=== PATIENT | male | born 1970 | race Caucasian/White ===

== ENCOUNTER → 2020-05-14 12:13 | Outpatient (CLI) | payer MEDICARE, SELFPAY ==
[2020-05-14 13:19] LABS: Hemoglobin A1C 9.3 % (4.0-6.0)
[2020-05-14 15:46] LABS: Alanine Aminotransferase 51 U/L (12-78); Albumin Level 4.4 g/dl (3.5-5.0); Albumin/Globulin Ratio 1.6 (1.1-1.8); Alkaline Phosphatase 90 U/L (38-126); Aspartate Amino Transferase 56 U/L (17-59); Bilirubin,Total 0.7 mg/dl (0.2-1.3); Calcium 10.2 mg/dl (8.4-10.2); Carbon Dioxide 27 mmol/L (22.0-30.0); Chloride 103 mmol/L (98-107); Chol/HDL Ratio 4.1 (1-3.5); Cholesterol 206 mg/dl (140-200); Globulin 2.7 g/dL (1.3-3.2); Glucose 141 mg/dl (74-100); HDL Cholesterol 50 mg/dl (40-60); Sodium 140 mmol/L (136-145); Total Protein,Serum 7.1 g/dl (6.3-8.2); Triglycerides 330 mg/dl (30-150); VLDL Cholesterol 66 mg/dL (0-40)
[2020-05-14 15:48] LABS: Blood Urea Nitrogen 25 mg/dl (9-20); Estimated Glomerular Filt Rate 43 ml/min (>60); GFR (African American) 52 ML/MIN (>60)
[2020-05-14 15:58] LABS: Direct LDL Cholesterol 98.25 mg/dL (100-129)
== END ==
PROVIDERS: PCP Internal Medicine Adolescent Medicine; Referring Provider Internal Medicine Adolescent Medicine; Visit Provider Internal Medicine Adolescent Medicine
DX: E11.9 Type 2 diabetes mellitus without complications (principal)
CPT/HCPCS: 36415; 80053; 80061; 83036

== ENCOUNTER → 2021-01-18 11:47 | Outpatient (CLI) | payer MEDICARE, SELFPAY ==
[2021-01-18 12:27] LABS: Hemoglobin A1C 8.8 % (4.0-6.0)
[2021-01-18 13:00] LABS: Alanine Aminotransferase 61 U/L (12-78); Albumin Level 4.1 g/dl (3.5-5.0); Albumin/Globulin Ratio 1.7 (1.1-1.8); Alkaline Phosphatase 76 U/L (38-126); Anion Gap 10.3 mEq/L (5-15); Aspartate Amino Transferase 46 U/L (17-59); Bilirubin,Total 0.5 mg/dl (0.2-1.3); Blood Urea Nitrogen 19 mg/dl (9-20); Calcium 8.8 mg/dl (8.4-10.2); Carbon Dioxide 26 mmol/L (22.0-30.0); Chloride 108 mmol/L (98-107); Chol/HDL Ratio 3.3 (1-3.5); Cholesterol 151 mg/dl (140-200); Estimated Glomerular Filt Rate 50 ml/min (>60); GFR (African American) 60 ML/MIN (>60); Globulin 2.4 g/dL (1.3-3.2); Glucose 146 mg/dl (74-100); HDL Cholesterol 46 mg/dl (40-60); Potassium 4.3 mmoL/L (3.5-5.1); Sodium 140 mmol/L (136-145); Total Protein,Serum 6.5 g/dl (6.3-8.2); Triglycerides 181 mg/dl (30-150); VLDL Cholesterol 36 mg/dL (0-40)
== END ==
PROVIDERS: Visit Provider Internal Medicine Adolescent Medicine
DX: E11.9 Type 2 diabetes mellitus without complications (principal)
CPT/HCPCS: 36415; 80053; 80061; 83036

== ENCOUNTER → 2021-05-09 10:05 | Outpatient (CLI) | payer MEDICARE, SELFPAY ==
[2021-05-09 11:15] LABS: Hemoglobin A1C 9.3 % (4.0-6.0)
[2021-05-09 11:56] LABS: Alanine Aminotransferase 79 U/L (12-78); Albumin Level 4.5 g/dl (3.5-5.0); Albumin/Globulin Ratio 1.6 (1.1-1.8); Alkaline Phosphatase 134 U/L (38-126); Anion Gap 15.8 mEq/L (5-15); Aspartate Amino Transferase 120 U/L (17-59); Bilirubin,Total 0.8 mg/dl (0.2-1.3); Blood Urea Nitrogen 20 mg/dl (9-20); Carbon Dioxide 25 mmol/L (22.0-30.0); Chloride 103 mmol/L (98-107); Chol/HDL Ratio 3.5 (1-3.5); Cholesterol 189 mg/dl (140-200); Estimated Glomerular Filt Rate 54 ml/min (>60); GFR (African American) 65 ML/MIN (>60); Globulin 2.9 g/dL (1.3-3.2); Glucose 300 mg/dl (74-100); HDL Cholesterol 54 mg/dl (40-60); Potassium 4.8 mmoL/L (3.5-5.1); Sodium 139 mmol/L (136-145); Total Protein,Serum 7.4 g/dl (6.3-8.2); Triglycerides 192 mg/dl (30-150); VLDL Cholesterol 38 mg/dL (0-40)
[2021-05-09 12:07] LABS: Direct LDL Cholesterol 113.29 mg/dL (100-129)
[2021-05-09 12:27] LABS: Thyroid Stimulating Hormone 1.54 uIU/mL (0.465-4.68)
[2021-05-10 11:21] LABS: Vitamin B12 693 pg/mL (239-931)
== END ==
PROVIDERS: Visit Provider Internal Medicine Adolescent Medicine
DX: E11.9 Type 2 diabetes mellitus without complications (principal)
CPT/HCPCS: 36415; 80053; 80061; 82607; 83036; 84443

== ENCOUNTER → 2021-09-20 13:20 | Outpatient (CLI) | payer MEDICARE, SELFPAY ==
[2021-09-20 14:36] LABS: Chloride 108 mmol/L (98-107); Sodium 138 mmol/L (136-145)
[2021-09-20 14:37] LABS: Potassium 4.5 mmoL/L (3.5-5.1)
[2021-09-20 14:39] LABS: Alanine Aminotransferase 57 U/L (12-78); Albumin Level 3.8 g/dl (3.5-5.0); Albumin/Globulin Ratio 1.5 (1.1-1.8); Alkaline Phosphatase 109 U/L (38-126); Anion Gap 10.5 mEq/L (5-15); Aspartate Amino Transferase 51 U/L (17-59); Bilirubin,Total 0.7 mg/dl (0.2-1.3); Blood Urea Nitrogen 20 mg/dl (9-20); Carbon Dioxide 24 mmol/L (22.0-30.0); Estimated Glomerular Filt Rate 54 ml/min (>60); GFR (African American) 65 ML/MIN (>60); Globulin 2.6 g/dL (1.3-3.2); Total Protein,Serum 6.4 g/dl (6.3-8.2)
[2021-09-20 14:40] LABS: Calcium 8.6 mg/dl (8.4-10.2); Glucose 314 mg/dl (74-100)
[2021-09-20 18:23] LABS: Hemoglobin A1C 9.1 % (4.0-6.0)
== END ==
PROVIDERS: Visit Provider Internal Medicine Adolescent Medicine
DX: E11.9 Type 2 diabetes mellitus without complications (principal)
CPT/HCPCS: 36415; 80053; 83036

== ENCOUNTER 2024-05-22 12:42 | Outpatient (CLI) | payer MEDICARE, SELFPAY ==
--- NOTE | 2024-05-22 12:45 | CT_ITS ---
FINAL REPORT TECHNIQUE: Thin section axial images were obtained from the lung apices to the upper abdomen by computed tomography. Reformatted images were obtained and reviewed. This study was performed with techniques to keep radiation doses al low as reasonably achievable (ALARA). Individualized dose reduction techniques using automated exposure control or adjustment of mA and/or kV according to the patient's size were employed. CLINICAL HISTORY: current smoker for 10years, 1 ppd COMPARISON: None FINDINGS: CHEST CT LOW DOSE 54-year-old male, current smoker, [id number] history. CTDI vol (mGy): 2.9 DLP (mGy-cm): 107.59 There is no axillary adenopathy. There is no mediastinal or hilar mass or adenopathy. The heart is normal in size. There is no pericardial or pleural effusion. Lung window images demonstrate a 4 mm left upper lobe nodule, best seen on image #136 of series 2.. Limited images of the upper abdomen are unremarkable. IMPRESSION: Lung-RADS category 2. Recommend 12 month follow up low dose chest CT. Reviewed, Interpreted and Dictated by Karan Shea MD Transcribed by Adelaide Arellano Authenticated and [facility]
== END 2024-05-22 23:59 | disposition home or self-care (01) ==
LOC: RAD 12:43
PROVIDERS: PCP Student in an Organized Health Care Education/Training Program; Visit Provider Student in an Organized Health Care Education/Training Program
DX: Z87.891 Personal history of nicotine dependence (principal); Z12.2 Encounter for screening for malignant neoplasm of respiratory organs
CPT/HCPCS: 71271